=== PATIENT | female | born 1980 | race Caucasian/White ===

== ENCOUNTER 2023-07-14 07:50 | Emergency (ER) | payer BC, SELFPAY ==
[2023-07-14 07:51] VITALS: BP 160/110
--- NOTE | 2023-07-14 08:30 | ED.GENMED ---
History of Present Illness
General
Chief Complaint: Fall
Source: patient and spouse
Exam Limitations: none
Time Seen by Provider: 07/14/23 08:01
Nursing documentation reviewed up to this point in time: agreed with
Travel History
Have you had any contact with someone who has COVID-19?: No
Do you have any symptoms of coronavirus? Fever > 100 degrees, chills, cough, shortness of breath, sore throat, loss of taste or smell, muscle aches, or headache?: No
History of Present Illness
History of Present Illness:
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 Patient has laceration to her right eyebrow and broke her glasses in the process. Denies loss of consciousness. Denies any other
injuries from the fall. Denies nausea or vomiting. Denies neck pain. Denies loss of sensation or weakness. Denies blurred vision. Patient states that her tetanus vaccination is up-to-date.
Past History
Past History
ED Past Medical History: Cancer and HTN (post )
ED Past Surgical History: and Other (Bilateral Mastectomy)
Social History
Tobacco: Non-smoker
Alcohol: None
Drug: None
Personal:
Living: with family
Review of Systems
Review of Systems
Allergies reviewed?: Yes
All Other Systems: ROS reviewed and negative except as documented in HPI and ROS
Constitutional: Reports no symptoms
EENT: Reports no symptoms
Respiratory: Reports no symptoms
Musculoskeletal: Reports no symptoms
Skin: Reports other (Forehead laceration)
Neurological: Reports dizzy and headache
Phy Exam
Physical Exam
Physical Exam:
Physical Exam
General: mild distress, not acutely ill. afebrile
Head: an approx 5mm superficial laceration, lateral to right eyebrow, without pulsatile bleeding.
Neck: supple. normal range of motion.
Neuro: alert and oriented. no focal neurological deficits. normal speech.
Skin: no rash
Psychiatric: well kept. interactive and cooperative
Extremities: no edema. no calf tenderness.
Course
Orders/Labs/Results
Orders:
Orders
07/14/23 08:30
CT Head W/o Iv Contrast Urgent
Comment:
Reason For Exam: trauma to right side of head
Acetaminophen [Tylenol] 650 mg PO NOW STA
Vital Signs
Initial and Last Documented VS:
Initial Vital Signs
Temp Pulse Resp BP Pulse Ox
99.5 F 73 18 160/110 98
07/14/23 07:51 07/14/23 07:51 07/14/23 07:51 07/14/23 07:51 07/14/23 07:51
Last Documented Vital Signs
Temp Pulse Resp BP Pulse Ox
99.5 F 65 16 142/99 100
07/14/23 07:51 07/14/23 09:40 07/14/23 09:40 07/14/23 09:40 07/14/23 09:40
Procedures
Laceration Closure
Right Lateral Forehead:
Status of Wound: clean
Description of Wound Edges: sharp
Preparation: cleaned with SurClens
Revision/Debridement: routine- no revision
Type of Closure: single layer closure and Dermabond-skin glue
MDM/Problems Addressed
MDM/Problems Addressed:
Wound well approximated with application of dermabond.
CT head: NAD.
Head injury/concussion discussed with patient and spouse, including strict brain rest, as well as PCP f/u as outpatient. Pt otherwise is afebrile, hemodynamically stable, and neurologically intact at time of discharge.
*Critical Care Note
Total Time (30-74mins, 75-104mins- exclusive of procedures): Not Applicable
ED Attending Note
-
Portions of this chart may have been created with voice recognition software.� Occasional wrong word or��sound alike� substitutions may have occurred due to the inherent limitations of voice recognition software.
Discharge Plan
Departure
Patient Disposition: Home (Routine Discharge)
Date of Disposition: 07/14/23
Time of Disposition: 09:25
Patient with high blood pressure during this ER visit?: Yes
Covid-19: Not Applicable
Discharge Problem:
Laceration of forehead, Head injury
Instructions: Concussion, Adult (DC), Laceration Repair With Glue (DC)
Prescriptions:
No Action
polyethylene glycol 3350 17 GRAMS powder in packet
17 grams PO DAILYPRN PRN (Reason: constipation)
levothyroxine 100 MCG tablet
100 mcg PO DAILY AT 0700
Patient Comments:
Confirmed [facility]
alprazolam 0.5 MG tablet
0.5 mg PO BIDPRN PRN (Reason: anxiety)
Patient Comments:
Confirmed [facility]
ibuprofen 200 MG tablet
600 mg PO Q6HPRN PRN (Reason: pain)
bisacodyl 5 MG tablet,delayed release (DR/EC)
5 mg PO DAILYPRN PRN (Reason: constipation)
labetalol 100 MG tablet
100 mg PO BID
fluoxetine 20 MG capsule
20 mg PO DAILY
oxycodone-acetaminophen 5 MG/325 MG tablet
1 tab PO Q4HPRN PRN (Reason: mild pain) Qty: 0 0RF
ferrous sulfate [FeroSul] 325 MG tablet
325 mg PO BID Qty: 60 0RF
docusate sodium 100 MG capsule
100 mg PO BID Qty: 60 0RF
prednisone 10 MG tablet
10 mg PO Daily Qty: 30 0RF
Rx Instructions:
Take 5 tablets on days 1 and 2, then 4,4,3,3,2,2,1,1 on the days following.
hydrocodone-acetaminophen 1 TABLET tablet
1 tab PO Q4HPRN PRN (Reason: pain) Qty: 12 0RF
Paxlovid 300 mg (150 mg x 2)-100 mg tablets,dose pack
See Rx Instructions .ROUTE .COMPLEX Qty: 30 0RF
Rx Instructions:
take TWO 150 mg tablets of nirmatrelvir with ONE 100 mg tablet of ritonavir twice daily for 5 days
Referrals:
Martell Price, DO [Family Provider] -
Stand Alone Forms: Return to Work
Activity Restrictions/Additional Instructions:
As discussed, please follow-up with your primary care physician with any further concerns.
Interventions
Interventions:
*Risk Screen - Suicide Last Done: 07/14/23 09:41
*General Assessment Last Done: 07/14/23 09:41
*Neglect/Abuse Screening Last Done: 07/14/23 09:41
ED- Fall Risk Assessment Last Done: 07/14/23 09:06
*ED COVID-19 Vaccine History Last Done: 07/14/23 07:51
*Nursing Disposition Last Done: 07/14/23 09:41
ED-Musculoskeletal Assessment Last Done: 07/14/23 09:06
ED- Neurological Assessment Last Done: 07/14/23 09:06
ED-Skin Assessment Last Done: 07/14/23 09:06
Discharge Date and Time
Discharge Date/Time: 07/14/23 09:41
[2023-07-14] MEDS: TYLENOL 650 MG PO (09:00)
[2023-07-14 09:40] VITALS: BP 142/99
== END 2023-07-14 09:41 | disposition home or self-care (01) ==
LOC: EMR 07:50
PROVIDERS: EMERGENCY PHYSICIAN Emergency Medicine; FAMILY PHYSICIAN Family Medicine
DX: S01.81XA Laceration without foreign body of other part of head, initial encounter (principal); S09.90XA Unspecified injury of head, initial encounter; W01.0XXA Fall on same level from slipping, tripping and stumbling without subsequent striking against object, initial encounter; I10 Essential (primary) hypertension
CPT/HCPCS: 99284; 12011; 70450

== ENCOUNTER 2025-01-01 21:57 | Emergency (ER) | payer BC, SELFPAY ==
[2025-01-01 22:04] VITALS: BP 154/120
[2025-01-02 00:40] VITALS: BP 158/96
--- NOTE | 2025-01-02 00:47 | ED.GENMED ---
History of Present Illness
General
Chief Complaint: Breast Problem
Source: patient
Exam Limitations: none
Time Seen by Provider: 01/02/25 00:00
Nursing documentation reviewed up to this point in time: agreed with
History of Present Illness
History of Present Illness:
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 [place] node biopsy negative. She did not require chemotherapy nor radiation and has remained
breast cancer free. Her breast surgeon is Yuliet Tanner. She admits that she has not followed up in her office since 2021.
She also has history of hypertension, had been maintained on antihypertensive medications but discontinued with weight loss and exercise. She admits that her blood pressure 'goes up and down.' Also, has not been exercising as of late and admits
that she has gained a few pounds.
She has history of anxiety, hypothyroidism, ADD.
She presents with 1 week history of discomfort, fullness right lateral breast and intermittent feeling of palpable lump right lateral breast. She has not had a fever nor chills, no cough nor shortness of breath. She denies injury.
She does admit to intermittent discomfort to either breast over a number of years and generally related to focal rubbing from sports bra etc. No history of cellulitis nor abscess formation.
She denies lifting or fall.
Her daily medications include: Concerta, levothyroxine, Xanax, Cymbalta.
Last menstrual period normal and on time 1 week ago.
With right lateral breast pain, palpable lump she called her breast surgeons office but as patient has not been seen in the office since 2021, was recommended to call her PCP office for prescription for ultrasound. She called her PCP office and was
recommended to come in for an office visit.
Patient does admit to somewhat chronic anxiety, worry regarding her health and thus presented to the ED.
Past History
Past History
ED Past Medical History: Cancer (Breast cancer 2013. DCIS. Bilateral mastectomy. No history of recurrence.), HTN, Hypothyroidism and Psychiatric (Anxiety, ADD)
ED Past Surgical History: , Gynecological (Bilateral mastectomy, right sentinel node biopsy, bilateral breast reconstruction with implants 2012) and Other (Bilateral Mastectomy)
Social History
Tobacco: Non-smoker
Alcohol: None
Drug: None
Personal:
Living: with family
Employment: Employed
Family History
Family History: Diabetes, Hypertension and Cancer (Mother with history of uterine sarcoma. Maternal grandmother history of lymphoma.)
Phy Exam
Physical Exam
Physical Exam:
GENERAL: 44-year-old woman appears her stated age, awake and alert, pleasant, appears in no acute distress. is accompanying.
EYE: anicteric
NECK: Supple, nontender, no meningismus, no significant adenopathy.
ENT: oral mucosa is moist. No rhinorrhea.
CARDIAC: Regular rate and rhythm. no murmur.
BREAST: Bilateral breast with inferior mammary surgical scars, bilateral horizontal midline scars at site of bilateral nipple excisions. Bilateral breast implants in place. There is pale pink petechial type rash right breast, superior to lateral
aspect. There is subtle nodular fullness right lateral breast implant and somewhat to the similar but less degree left lateral breast implant. No definitive palpable mass, no axillary mass bilaterally. There is no erythema. No palpable heat. No
lymphangitis. There is mild tenderness right lateral breast implant.
LUNGS: Clear breath sounds bilaterally, no acute respiratory distress, no wheezes/rales/rhonchi
ABDOMEN: Soft, nondistended, without focal tenderness, no r/g, normoactive BS.
NEUROLOGICAL: Alert and oriented x3, no focal neuro deficits. Gait is ge and steady.
SKIN: Warm and dry, normal color, skin intact. No rash.
MUSCULOSKELETAL: No C/C/E. peripheral pulses are full and equal b/l. No palpable tenderness.
PSYCH: Normal and appropriate interaction.
Course
Orders/Labs/Results
Orders:
Orders
01/02/25 00:00
US Breast Right Ltd Urgent
Reason For Exam: R breast pain/swelling
01/02/25 00:46
Electrocardiogram (*1) Urgent
Reason for Study: Chest Pain
EKG- Treatment ONCE
01/02/25 00:52
Complete Blood Count/With Diff Routine
Comprehensive Metabolic Panel Routine
Free T4 Urgent
TSH Reflex To Free T4 Urgent
01/02/25 01:56
Add On- LAB Urgent
Tests Added?: CMP, CBC
Abnormal Lab Results
01/02/25
00:52
WBC 12.0 H 10^3/uL
(4.8-10.8)
Absolute Neuts (auto) 7.2 H 10^3/uL
(1.4-6.5)
Absolute Lymphs (auto) 4.0 H 10^3/uL
(1.2-3.4)
Glucose 106 H mg/dl
(70-99)
TSH (Reflex) 14.50 H uIU/ml
(0.47-4.68)
01/02/25 00:52
01/02/25 00:52
Vital Signs
Initial and Last Documented VS:
Initial Vital Signs
Temp Pulse Resp BP Pulse Ox
98.3 F 84 18 154/120 97
01/01/25 22:04 01/01/25 22:04 01/01/25 22:04 01/01/25 22:04 01/01/25 22:04
Last Documented Vital Signs
Temp Pulse Resp BP Pulse Ox
98.3 F 74 20 158/96 97
01/01/25 22:04 01/02/25 00:00 01/02/25 00:00 01/02/25 00:40 01/02/25 00:49
MDM/Problems Addressed
Differential Diagnosis Includes:
Concern for right lateral breast pectoralis muscle strain/capsular strain, other consideration is adenopathy, abscess, recurrent breast cancer.
There is no evidence of cellulitis on exam.
Less likely ACS.
Limited right breast ultrasound has been completed. Awaiting result.
Noted to be moderately hypertensive. Initially 154/120. Upon recheck 150/90. Patient has history of hypertension. Previously maintained on lisinopril/HCTZ.
Due to hypertension, right chest pain which clearly appears reproducible, right lateral chest wall nonetheless check EKG for completeness sake. Will also check laboratory studies and thyroid function.
Patient maintained on levothyroxine 88 mcg. She reports has been more than a year since thyroid function has been checked.
Review of records, most PCP visit May 2024. Normal blood pressure at that time. I can see that fasting labs were ordered March 2024. There are no results to review. (upon questioning pt--she attempted to have blood work drawn at outpatient
lab a few weeks ago but abandoned effort due to lengthy wait time)
Chronic conditions affecting care: HTN, Psychiatric illness (Anxiety), Cancer and Other (Hypothyroidism)
*Radiology
Radiology exam reviewed: radiology read reviewed (Right breast limited ultrasound is unremarkable. No evidence of mass, no fluid collection.)
*Pulse Oximetry
SaO2: 97
Oxygen Mode of Delivery: Room air
Patient hypoxic: no
*EKG
Interpreted by ED Provider?: Yes
Interpretation: normal
Comparison EKG: no comparison EKG present
Rate: normal
Rhythm: sinus
[place]: normal axis
Interval: normal interval
QRS Pattern: normal QRS
Ischemia: no ischemia
*Critical Care Note
Total Time (30-74mins, 75-104mins- exclusive of procedures): Not Applicable
Update Note
Update Note:
Limited breast ultrasound is unremarkable. No evidence of mass nor fluid collection nor abscess.
Labs show mildly elevated white blood cell count, nonspecific. She remains afebrile. Chemistries are unremarkable save for mildly elevated TSH of 14.5 with normal free T4 at 0.91.
Patient admits to sporadic noncompliance with levothyroxine.
Recommend she resume daily levothyroxine. May take Tylenol versus ibuprofen as needed for right lateral breast discomfort which I suspect is muscular/pectoralis muscle irritation in nature.
Prompt follow-up with PCP for recheck and recommend follow-up with breast surgeon for recheck as well.
ED Attending Note
-
Portions of this chart may have been created with voice recognition software.� Occasional wrong word or��sound alike� substitutions may have occurred due to the inherent limitations of voice recognition software.
Discharge Plan
Departure
Patient Disposition: Home (Routine Discharge)
Date of Disposition: 01/02/25
Time of Disposition: 03:12
Patient with high blood pressure during this ER visit?: Yes
Condition: Good
Discharge Problem:
right lateral breast pain, TSH elevation, Elevated blood pressure reading in office with diagnosis of hypertension
Instructions: Breast Surgery Exercises, BLOOD PRESSURE
Prescriptions:
No Action
polyethylene glycol 3350 17 GRAMS powder in packet
17 grams PO DAILYPRN PRN (Reason: constipation)
levothyroxine 100 MCG tablet
100 mcg PO DAILY AT 0700
Patient Comments:
Confirmed [facility]
alprazolam 0.5 MG tablet
0.5 mg PO BIDPRN PRN (Reason: anxiety)
Patient Comments:
Confirmed [facility]
ibuprofen 200 MG tablet
600 mg PO Q6HPRN PRN (Reason: pain)
bisacodyl 5 MG tablet,delayed release (DR/EC)
5 mg PO DAILYPRN PRN (Reason: constipation)
labetalol 100 MG tablet
100 mg PO BID
fluoxetine 20 MG capsule
20 mg PO DAILY
oxycodone-acetaminophen 5 MG/325 MG tablet
1 tab PO Q4HPRN PRN (Reason: mild pain) Qty: 0 0RF
ferrous sulfate [FeroSul] 325 MG tablet
325 mg PO BID Qty: 60 0RF
docusate sodium 100 MG capsule
100 mg PO BID Qty: 60 0RF
prednisone 10 MG tablet
10 mg PO Daily Qty: 30 0RF
Rx Instructions:
Take 5 tablets on days 1 and 2, then 4,4,3,3,2,2,1,1 on the days following.
hydrocodone-acetaminophen 1 TABLET tablet
1 tab PO Q4HPRN PRN (Reason: pain) Qty: 12 0RF
Paxlovid 300 mg (150 mg x 2)-100 mg tablets,dose pack
See Rx Instructions .ROUTE .COMPLEX Qty: 30 0RF
Rx Instructions:
take TWO 150 mg tablets of nirmatrelvir with ONE 100 mg tablet of ritonavir twice daily for 5 days
Referrals:
Yuliet Ventura MD [Non-Admitting Privileges, Surgical] - Call in 1-3 days for appt
Martell Price DO [Family Provider, Family Practice] - Call in 1-3 days for appt
Activity Restrictions/Additional Instructions:
Follow-up with your primary care physician for recheck blood pressure as well as recheck hypothyroidism. Resume daily levothyroxine dosing.
Follow-up with your breast surgeon regarding right lateral breast pain.
Interventions
Interventions:
*Risk Screen - Suicide Last Done: 01/01/25 22:04
*General Assessment Last Done: 01/01/25 22:04
*Neglect/Abuse Screening Last Done: 01/01/25 22:04
*ED COVID-19 Vaccine History Last Done: 01/01/25 22:04
ED-Skin Assessment Last Done: 01/02/25 00:58
Discharge Date and Time
Print Language: BRAZILIAN
[2025-01-02 02:06] LABS: Hematocrit 37.7 % (37.0-47.0); Hemoglobin 13.5 g/dL (12.0-16.0); Mean Corp Hgb Conc. 35.8 g/dL (33.0-37.0); Mean Corpuscular Volume 82.5 fL (81.0-99.0); Nucleated Red Blood Cells % 0 %; Platelet Count 287 10^3/uL (130-400); Red Cell Dist. Width 13.1 % (11.5-14.5)
[2025-01-02 02:43] LABS: AST (SGOT) 20 U/L (14-36); Albumin 4.3 g/dl (3.5-5.0); Blood Urea Nitrogen 9 mg/dl (7-17); Carbon Dioxide 27 mmol/L (22-30); Chloride 105 mmol/L (98-107); Glucose 106 mg/dl (70-99); Total Protein 6.9 g/dl (6.3-8.2); eGFR > 60.00
[2025-01-02 03:03] LABS: ALT (SGPT) 17 U/L (0-35); Alkaline Phosphatase 60 U/L (38-126); Calcium 9.2 mg/dl (8.4-10.2); Potassium 3.6 mmol/L (3.5-5.1); Sodium 137 mmol/L (135-145)
--- NOTE | 2025-01-02 03:37 | EDRN ---
Reviewed discharge instructions with patient. Verbalized understanding. Ambulated with steady gait to the lobby.
[2025-01-02 03:39] VITALS: BP 151/96
== END 2025-01-02 03:30 | disposition home or self-care (01) ==
LOC: EMR 21:57
PROVIDERS: EMERGENCY PHYSICIAN Emergency Medicine; FAMILY PHYSICIAN Family Medicine
DX: N64.4 Mastodynia (principal); R03.0 Elevated blood-pressure reading, without diagnosis of hypertension; E03.9 Hypothyroidism, unspecified; I10 Essential (primary) hypertension; Z79.899 Other long term (current) drug therapy; Z85.3 Personal history of malignant neoplasm of breast; Z90.13 Acquired absence of bilateral breasts and nipples; Z98.82 Breast implant status
CPT/HCPCS: 99284; 76642; 80053; 84439; 84443; 85025; 93005